=== PATIENT | female | born 2000 | race Caucasian/White ===

== ENCOUNTER 2018-06-20 02:15 | Emergency (ER) | payer SELFPAY ==
[2018-06-20] MEDS ORDERED: NS(*) 0.9% 1000 ML BAG 1,000 ML IV ONE (02:19)
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
[2018-06-20 02:36] LABS: PLATELET COUNT, AUTOMATED 291 K/uL (150-450)
[2018-06-20 05:00] VITALS: BP 90/53
== END 2018-06-20 05:14 ==
LOC: ER 02:18 → EDBD 02:18 → ER 05:14
DX: T50.902A Poisoning by unspecified drugs, medicaments and biological substances, intentional self-harm, initial encounter (principal); Y90.3 Blood alcohol level of 60-79 mg/100 ml
CPT/HCPCS: 80305; 80320; 80329; 81001; 81025; 83735; 84443; 85025; 99284; J7030; 82040; 82247; 82310; 82374; 82435; 82565; 82947; 84075; 84132; 84155; 84295; 84450; 84460; 84520

== ENCOUNTER 2018-06-20 04:52 | Inpatient (IN) | payer BC ==
[~2018-06-20] VITALS: Ht 160 cm; Wt 68.5 kg
[2018-06-20] MEDS ORDERED: NICOTINE INH SYSTEM 10 MG/INH INH PRN (05:15)
[2018-06-20] MEDS ORDERED: NICOTINE CARTRIDGE 1 EA PO PRN (05:15)
[2018-06-20] MEDS ORDERED: MAG HYD/AL HYD/SIMETH 30ML UDC PO PRN (05:15)
[2018-06-20 05:40] VITALS: BP 116/74
[2018-06-20] MEDS: MULTIVITAMINS TAB PO SCH (08:15)
[2018-06-20] MEDS ORDERED: ONDANSETRON 4 MG ODT TABDP SL ONE (09:25)
[2018-06-20] MEDS ORDERED: FLUoxetine HCL 20 MG CAP PO SCH (09:25)
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
[2018-06-20 12:10] VITALS: BP 92/50
[2018-06-20 19:45] VITALS: BP 92/60
--- NOTE | 2018-06-20 19:45 | EKG ---
FACILITY: [facility] PATIENT NAME: GIA IRIZARRY : [id number] MR: [id number] V: [id number] EXAM DATE: ORDERING PHYSICIAN: DOUGLAS RIOS TECHNOLOGIST: VIMAL Garcia Reason : Irregular heart beat Blood Pressure : / mmHG Vent. Rate : 058 BPM Atrial Rate : 058 BPM P-R Int : 134 ms QRS Dur : 082 ms QT Int : 462 ms P-R-T Axes : 049 072 032 degrees QTc Int : 453 ms Sinus bradycardia Otherwise normal ECG No previous ECGs available Confirmed by Dandre Cazares ([id number]) on 06/21/2018 6:28:04 AM Referred By: Confirmed By:Dandre Soto
--- NOTE | 2018-06-20 20:23 | Miscellaneous Provider Note ---
Miscellaneous Provider Note Note S Thank you for allowing us to participate in this patients care. 17F admitted after suicide attempt by overdosing on narcotics. Today notified staff she was having chest pressure, the hospitalist service was asked to evaluate her for further work up recommendations. Pressure located in center of chest, denies radiation, may increase with sitting upright or standing, reports occasional chest tightness when anxious. Chest pressure is still present on evaluation. Hx of PDA closure when she was 1Y. Denies family Hx, palpitations, SOB, diaphoresis. EKG sinus bradycardia. O BP 92/60, P 58, O2 97% on RA Well appearing female, flat affect PERRL Heart - RRR with occasional premature beats, pulse regular Lungs - CTAB, unlabored breathing A/P Chest pain - EKG sinus bradycardia (likely 2/2 medication overdose and age), atypical chest pain in low risk patient. Recommend periodic reassessment, if pain worsens or she has other concerns such as palpitations would repeat EKG. No troponin recommended at this time, suspect this is anxiety given Hx. Please do not hesitate to call us if concern arises again. CYNDEE WATSON DO Jun 20, 2018 20:23
[2018-06-21 04:28] VITALS: BP 102/47
[2018-06-21] MEDS: MULTIVITAMINS TAB PO SCH (07:54)
[2018-06-21] MEDS: FLUoxetine HCL 20 MG CAP PO SCH (07:54)
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
--- NOTE | 2018-06-21 14:06 | BHS Progress Note ---
[facility] - Subjective Progress Notes Subjective Pt seen in treatment team meeting with her family present. Pt reports feeling somewhat better today, both physically and emotionally. Her affect is brighter (though still overall predominately dysphoric) and she was interacting more with family members, including giggling at times with her 14 year old sister. Pt tolerated her first dose of prozac well, without any noted side effects. She slept well last night and appetite has been fair. Pt's mother mentioned that pt. has had episodes at times where her mood seems elevated, she is more talkati ve, louder. Pt says that during these times her mood is nevertheless depressed. She denies euphoria and decreased need for sleep. We discussed the spectrum of mood disorders and how pt and her family should watch for any further evidence of mood swings. Pt is cautioned to contact her provider or call us if she experiences any agitation or return of SI at any time after discharge. Pt's TSH was mildly elevated, and T3 returns today as WNL, T4 is still pending. Pt instructed to follow up with [facility] in about 6-8 weeks for re-check of TSH. Today we will work on continued psychoeducation regarding depression, and will begin wellness and recovery plan for a tentative discharge tomorrow if she continues to improve, tolerates Prozac, and is free of SI. Suicidal Ideation: Resolving Homicidal Ideation: None [facility] - Objective Physical Exam Vital Signs Vital Signs 06/20/18 06/21/18 12:10 04:28 Temp 98.1 Pulse 67 Resp 16 B/P (MAP) 102/47 (65) Pulse Ox 96 O2 Delivery Room Air Muscle Strength and Tone: WNL Gait and Station: Steady [facility] Medications Reviewed: Side Effects, Benefits of Medication, Risks Allergies Reviewed: Yes Mental Status Exam General Appearance: Casual, Well Groomed, Good Eye Contact, Cooperative, Tearful (only once today as compared with frequently yesterday.) Speech: Clear, Spontaneous, Normal Volume, Delayed Mood: Dysthmic/Depressed Affect: Sad, Tearful, Anxious Thought Process: Organized, Logical, Goal Directed Thought Content: Suicidal Ideation (resolving); No Homicidal Ideation, No Delusions, No Auditory Halllucinations, No Visual Hallucinations, No Thought Broadcasting, No Ideas of Reference, No Obsessions, No Compulsions, No Other Sensorium: Clear Cognition: Alert & Oriented-Person, Alert & Oriented-Place, Alert & Oriented- Time, Krosx-Jmpdajeb-Pgbwjbxbg Memory: Immediate, Recent, Remote Intelligence: Average Insight Judgment: Fair [facility] Assessment and Plan [id number] Encounter Date: Jun 21, 2018 Ynyg-fs-Vyaz Encounter Time: 10:00 [facility] Plan: Admit to Unit, Necessary Precautions, Individual/Group Therapy, Admin/Titrate Meds, Educate Patient Tobacco Medications: Not Appropriate Condition Multpiple Antipsychotics Used: No Problems: (1) Depression, major, single episode, severe (2) Suicide attempt Status: Acute DOUGLAS RIOS MD Jun 21, 2018 14:06
[2018-06-21 14:20] VITALS: BP 119/56
[2018-06-21 21:57] VITALS: BP 101/63
[2018-06-22 05:53] VITALS: BP 96/75
[2018-06-22] MEDS: FLUoxetine HCL 20 MG CAP PO SCH (07:57)
[2018-06-22] MEDS: MULTIVITAMINS TAB PO SCH (07:57)
[2018-06-22] MEDS ORDERED: FLUO-202 PO (11:39)
[2018-06-22] MEDS ORDERED: MULT-1379 PO (11:40)
[2018-06-22] MEDS ORDERED: TRAZ150T8 PO (11:41)
[2018-06-22 13:20] VITALS: BP 105/56
[2018-06-22] MEDS ORDERED: traZODone HCL 50 MG TAB PO SCH (21:00)
--- NOTE | 2018-06-23 08:49 | SCHAAF DISCHARGE ---
ATTENDING PHYSICIAN Julien Mustafa MD The patient was seen at approximately 1100 hours on the a.m. of June 22, 2018 for note concerning this dictation. REASON FOR ADMISSION Please see history and physical for full details. This is a very pleasant 17-year-old female who notably took a very active role in her treatment. The patient was initially emergently detained secondary to suicidal gesture. The patient was found to have negative opiate screen and with alcohol level below legal limits to drive. Again, please refer to history and physical for full details concerning depressive symptoms. Patient, again, took a very active role in her treatment, responded well to treatment. Emergency detainment was dropped and patient was discharged to home to continue outpatient treatment after suicidal ideations had resolved. The patient is very bright and prognosis is thought to be excellent in this patient. PHYSICAL EXAMINATION Please see emergency room note. Notable for 17-year-old female initially reporting some pain symptoms. Vital signs at the time of admission: Pulse 108, respiratory rate 24, blood pressure 110/72, pulse oximetry 96 on room air. At time of discharge from [facility]: Vital signs showed temperature 98.6, pulse 50, respiratory rate 16, blood pressure 105/56 and pulse oximetry 96 on room air. LABORATORY DATA Free T4 noted to be in normal range at 1.40, free T3 at 3.5. CBC was unremarkable at time of admission. CMP notable only for potassium slightly low at 3.3 with a TSH mildly elevated at 5.35. Toxicology screen notably negative also for acetaminophen or salicylate with serum alcohol at 66 at time of admission. Urinalysis was unremarkable. Negative screen. MENTAL STATUS EXAMINATION GENERAL APPEARANCE, BEHAVIOR AND ATTITUDE: This is very polite and cooperative 17-year-old female interacting very well with this provider and other treatment team staff. Minimal psychomotor agitation noted. Patient is anxious appearing at times. No periods of tearfulness. No bizarre mannerisms or tics. SPEECH: Within normal limits. Regular rate, rhythm, volume and tone. MOOD: Described as good. AFFECT: Full and bright and mood-congruent. THOUGHT PROCESSES: Goal-directed, logical. No loose associations or flight of ideas. THOUGHT CONTENT: Free of auditory or visual hallucinations, ideas of reference, thought broadcastings, delusions, obsessions or compulsions. The patient adamantly denying any further suicidal or homicidal ideation. SENSORIUM: Clear. COGNITION: Alert and oriented to person, place, time and situation. MEMORY: Immediate, recent and remote was estimated intact. INTELLIGENCE: Average to above based on interview. INSIGHT AND JUDGMENT: Considered grossly intact and appropriate for ongoing outpatient treatment. RESULTS OF TESTING Imaging: None. Laboratory data: See above. CONSULTATIONS None. TREATMENT Patient received medications, participated in individual and group therapy. HOSPITAL COURSE The patient was given starting dose of Prozac. Patient would continue on this medication and see outpatient provider. Patient also started on trazodone. The patient has an anxious type underlying personality. Patient reports her sleep is hampered by worry at times. Patient took a very active role in her treatment and prognosis is considered good. The patient was discharged to home. CONDITION OF PATIENT ON DISCHARGE Stable. Considered a minimal risk to herself or others, appropriate for ongoing outpatient treatment. DISPOSITION The patient was discharged to home. She would follow up with outpatient medication and therapy. The patient remained on Prozac 20 mg every a.m. and trazodone 50-150 mg p.o. at bedtime p.r.n. for insomnia. Crisis Line was given should symptoms return. The patient would abstain from the use of all alcohol or other substance. Prognosis is excellent in this patient. The risks, benefits and alternatives were discussed. Informed consent was given to proceed with the above discharge plan by this competent patient. RUFINO
== END 2018-06-22 17:24 | disposition home or self-care (01) | DRG 885 ==
LOC: BHS 04:52
PROVIDERS: ADMIT Psychiatry & Neurology Psychiatry; ATTEND Psychiatry & Neurology Psychiatry
DX: F32.2 Major depressive disorder, single episode, severe without psychotic features (principal); R45.851 Suicidal ideations; T40.2X2A Poisoning by other opioids, intentional self-harm, initial encounter; T51.0X2A Toxic effect of ethanol, intentional self-harm, initial encounter; F41.9 Anxiety disorder, unspecified; G47.00 Insomnia, unspecified; Y90.3 Blood alcohol level of 60-79 mg/100 ml; Y92.009 Unspecified place in unspecified non-institutional (private) residence as the place of occurrence of the external cause; Z91.410 Personal history of adult physical and sexual abuse; Z91.5 Personal history of self-harm; Z81.8 Family history of other mental and behavioral disorders
CPT/HCPCS: 36415; 84439; 84481; 93005; S0119

== ENCOUNTER 2018-10-16 18:51 | Emergency (ER) | payer OTHER, BC ==
[~2018-10-16 18:51] MED LIST: FLUO-202 PO; MULT-1379 PO; TRAZ150T8 PO
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
[2018-10-16 20:00] VITALS: BP 107/68
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
[2018-10-16] MEDS ORDERED: IBUPROFEN 600 MG TAB PO ONE (20:30)
== END 2018-10-16 20:38 | disposition home or self-care (01) ==
LOC: ER 18:56
DX: S13.4XXA Sprain of ligaments of cervical spine, initial encounter (principal); V48.5XXA Car driver injured in noncollision transport accident in traffic accident, initial encounter
CPT/HCPCS: 70450; 72125; 72128; 81025; 99284

== ENCOUNTER 2018-12-30 23:15 | Emergency (ER) | payer BC, OTHER ==
[2018-12-30] MEDS ORDERED: BUPR-474 PO (23:40)
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
[2018-12-31] MEDS ORDERED: AZITHROMYCIN 250 MG TAB PO ONE (03:05)
[2018-12-31] MEDS ORDERED: METRONIDAZOLE 500 MG TABLET PO ONE (03:05)
[2018-12-31] MEDS ORDERED: IBUPROFEN 600 MG TAB PO ONE (03:05)
[2018-12-31] MEDS ORDERED: cefTRIAXone 250 MG VIAL IM ONE (03:05)
[2018-12-31 07:00] VITALS: BP 101/56
== END 2018-12-31 07:52 | disposition home or self-care (01) ==
LOC: ER 23:45
DX: T76.21XA Adult sexual abuse, suspected, initial encounter (principal); S70.11XA Contusion of right thigh, initial encounter; M79.89 Other specified soft tissue disorders
CPT/HCPCS: 36415; 86703; 96372; 99285; J0696; Q0144